=== PATIENT | male | born 1990 | race Caucasian/White ===

== ENCOUNTER 2020-07-11 06:19 | Emergency (ER) | payer SELFPAY | END 2020-07-11 08:30 | disposition home or self-care (01) | LOC: FER 06:19 → EDBD 06:19 → FER 06:19 | DX: S80.02XA Contusion of left knee, initial encounter (principal); S80.211A Abrasion, right knee, initial encounter; S20.312A Abrasion of left front wall of thorax, initial encounter; F19.10 Other psychoactive substance abuse, uncomplicated; F17.200 Nicotine dependence, unspecified, uncomplicated; W86.8XXA Exposure to other electric current, initial encounter; Y92.410 Unspecified street and highway as the place of occurrence of the external cause | CPT/HCPCS: 70486; 71101; 73100; 73560 ==